=== PATIENT | female | born 1970 | race African-American/Black ===

== ENCOUNTER 2019-07-15 15:52 | Emergency (ER) | payer MEDICARE, SELFPAY ==
--- NOTE | ~2019-07-15 | XR_ITS ---
EXAMINATION: XR chest 2V DATE: 07/15/2019 21:29 INDICATION: Fever, cough and congestion TECHNIQUE: PA and lateral views of the chest were obtained. COMPARISON: Chest radiograph dated 12/09/2010 FINDINGS: The lungs remain clear with no focal airspace opacities, pulmonary edema, pleural effusion or pneumot horax. The cardiomediastinal silhouette is normal. Mild lumbar spondylosis. IMPRESSION: 1. No acute cardiopulmonary disease. Reviewed, dictated and finalized at location A. [employer]
[2019-07-15 16:57] VITALS: BP 141/95; PULSE 93; RESP 18; TEMP 36.7; O2SAT 100
[2019-07-15 19:06] VITALS: BP 152/98; PULSE 94; RESP 20; O2SAT 97
[2019-07-15 20:33] VITALS: BP 153/88; PULSE 100; RESP 22; TEMP 37.1; O2SAT 94
--- NOTE | 2019-07-15 21:04 | ED.GENADULT ---
HPI - General Adult General Chief complaint: Upper Respiratory Infection Stated complaint: cough and cold s/sx x1wk vag d/c Time Seen by Provider: 07/15/19 21:03 Source: patient and RN notes reviewed Mode of arrival: ambulatory Limitations: no limitations History of Present Illness HPI narrative: A 49 y/o female presents to the ED with dysuria beginning today. She states that she has had a real bad cold for the past 8 days, but today when she began to have burning pain when she urinated so she decided to come to the ED to be evaluated. She reports associated cough, sore throat, generalized body aches, mild vaginal discharge, chills, and a fever of 102 that broke today. She notes that she has done and take everything to try and alleviated her symptoms but denies anything working. She also denies any SOB or CP. Onset (ago): hour(s) Relieving factors: none Associated symptoms: cough, fever/chills (of 102 that has resolved yesterday) and other (sore throat, generalized body aches, mild vaginal discharge) Related Data Allergies Allergy/AdvReac Type Severity Reaction Status Date / Time latex Allergy Mild Unknown Verified 07/15/19 19:06 Review of Systems Constitutional: Constitutional: Reports body ache(s) (generalized), Reports chills and Reports fever(s) (of 102 that resolved yesterday) ENT: Reports sore throat Cardiovascular: Cardiovascular: Denies chest pain Respiratory: Respiratory: Reports cough and Denies dyspnea Genitourinary: Genitourinary: Reports dysuria and Reports vaginal discharge (mild) [facility] Past Medical History Medical History (Updated 07/15/19 @ 22:03 by Dinesh Parks MD) Bronchitis (Acute) Carpal tunnel syndrome (Acute) Ectopic (Acute) Hypertension (Acute) Surgical History Surgical History (Updated 07/15/19 @ 21:33 by Dale Muller) H/O prior ablation treatment (Acute) History of carpal tunnel surgery of left wrist (Acute) History of cholecystectomy (Acute) History of gastric bypass (Acute) History of hysterectomy (Acute) Hx of tubal ligation (Acute) Social History Social History (Updated 07/15/19 @ 21:34 by Dale Muller) Smoking status: Never smoker Gender identity (if verbalized by the patient): Female Comments PCP: Dr. Barnes. Course Vital Signs Vital signs: Vital Signs Temperature 36.7 C 07/15/19 16:57 Pulse Rate 93 07/15/19 16:57 Respiratory Rate 18 07/15/19 16:57 Blood Pressure 141/95 H 07/15/19 16:57 Pulse Oximetry 100 07/15/19 16:57 Temperature 36.7 C 07/15/19 16:57 Pulse Rate 94 07/15/19 19:06 Respiratory Rate 20 07/15/19 19:06 Blood Pressure 152/98 H 07/15/19 19:06 Pulse Oximetry 97 07/15/19 19:06 Medical Decision Making Vital Signs Vital Signs: Vital Signs Temperature 36.7 C 07/15/19 16:57 Pulse Rate 93 07/15/19 16:57 Respiratory Rate 18 07/15/19 16:57 Blood Pressure 141/95 H 07/15/19 16:57 Pulse Oximetry 100 07/15/19 16:57 Temperature 36.7 C 07/15/19 16:57 Pulse Rate 94 07/15/19 19:06 Respiratory Rate 20 07/15/19 19:06 Blood Pressure 152/98 H 07/15/19 19:06 Pulse Oximetry 97 07/15/19 19:06 Lab Data Labs: Influenza A Screen Negative Reference Range: Negative Influenza B Screen Negative Reference Range: Negative Discharge Plan Discharge Clinical Impression: Upper respiratory infection Instructions: Upper Respiratory Infection (ED) Prescriptions: New pseudoephedrine HCl 30 mg capsule (abuse-resistant) 60 mg PO Q4-6H PRN (Reason: nasal congestion) Qty: 60 RF: 0 benzonatate [Tessalon Perles] 100 mg capsule 200 mg PO TID PRN (Reason: cough) Qty: 30 RF: 0 Follow-up/Referrals: UNKNOWN,DOCTOR [Primary Care Provider] -
[2019-07-15] MEDS: PSEUDOEPHEDRINE HCL 30 MG TABLET 60 MG PO (21:36)
[2019-07-15] MEDS: IBUPROFEN 600 MG TABLET PO (21:36)
[2019-07-15 21:40] VITALS: BP 145/97; PULSE 97; RESP 20; TEMP 37.1; O2SAT 93
[2019-07-15] MEDS: BENZONATATE 100 MG CAPSULE 200 MG PO (22:01)
--- NOTE | 2019-07-15 22:15 | PC.NURSE ---
Patient provided urine sample. To send at this time.
--- NOTE | 2019-07-15 22:37 | PC.NURSE ---
RN in to clean room. asked pt if she was okay. Pt states I have been here for fucking seven hours. Go get my discharge papers and send me home. EDP notified.
[2019-07-15 22:52] LABS: Add Urine Microscopic? YES; Appearance Urine Clear (Clear); Bacteria Urine Trace /hpf; Bilirubin Urine Negative (Negative); Blood Urine Negative (Negative); Color Urine Yellow (Yellow); Glucose Urine UA Negative (Negative); Ketones Urine Trace mg/dL (Negative); Leukocyte Esterase Ur Trace LEU/UL (NEGATIVE); Mucus Urine Rare /lpf; Nitrate Urine Negative (Negative); Protein Urine Negative (Negative); Specific Grav Ur 1.024 (1.001-1.035); Squamous Epithelial Cell Urine Few /hpf (Few)
--- NOTE | 2019-07-15 23:18 | PC.NURSE ---
BARBARA Parks aware of patient's lab results.
== END 2019-07-15 22:50 | disposition home or self-care (01) ==
PROVIDERS: Emergency Provider Emergency Medicine; Visit Provider Emergency Medicine
DX: J06.9 Acute upper respiratory infection, unspecified (principal); I10 Essential (primary) hypertension; Z98.84 Bariatric surgery status; R50.9 Fever, unspecified
CPT/HCPCS: 71046; 81001; 87086; 87804; 99283; A9270

== ENCOUNTER 2019-10-08 08:14 | Outpatient (CLI) | payer MEDICARE, SELFPAY ==
[2019-10-08 09:02] LABS: Basophils Absolute Auto 0.1 K/mm3 (0.0-0.1); Basophils Percent Auto 0.9 % (0.2-1.2); Eosinophils Absolute Auto 0.2 K/mm3 (0-0.3); Eosinophils Percent Auto 2.6 % (0-4.4); Hematocrit 40.5 % (37.0-47.0); Hemoglobin 12.8 g/dL (12.0-15.0); Immature Granulocyte Absolute 0.03 K/mm3 (0.00-0.031); Immature Granulocyte Percent A 0.4 % (0-0.5); Lymphocytes Absolute Auto 2.07 K/mm3 (0.9-3.2); Mean Corpuscular HGB Conc 31.6 g/dl (32-36); Mean Corpuscular Hemoglobin 29.6 pg (26-34); Mean Corpuscular Volume 93.5 fl (80-100); Mean Platelet Volume 9.7 fl (7.4-10.4); Monocytes Absolute Auto 0.7 K/mm3 (0.1-0.6); Monocytes Percent Auto 8.5 % (2.6-8.5); Neutrophils Absolute Auto 4.9 K/mm3 (1.3-6.7); Neutrophils Percent Auto 61.6 % (45.5-73.1); Platelet Count Result 311 k/mm3 (150-375); Red Blood Count 4.33 M/mm3 (4.2-5.4); Red Cell Distribution Width 12.8 % (11.5-14.5)
[2019-10-08 09:15] LABS: Alanine Aminotransferase 14 U/L (4-35); Albumin Level 3.7 g/dL (3.5-5.1); Alkaline Phosphatase 98 U/L (38-126); Aspartate Amino Transferase 21 U/L (14-36); Bilirubin,Total 0.6 mg/dL (0.2-1.3); Blood Urea Nitrogen 17 mg/dL (7-17); Carbon Dioxide 28 mmol/L (22-30); Chloride 101 mmol/L (98-107); Estimated Glomerular Filt Rate > 60; Glucose 87 mg/dL (65-105); Magnesium 1.8 mg/dL (1.6-2.3); Sodium 137 mmol/L (137-145)
[2019-10-08 09:22] LABS: Prealbumin 19.5 mg/dL (17.6-36.0)
[2019-10-08 09:58] LABS: Iron 48 ug/dL (37-170)
[2019-10-08 10:04] LABS: Vitamin D 25 Hydroxy 26.6 ng/mL
[2019-10-08 10:32] LABS: Folic Acid 8.9 ng/mL (2.76->20); Vitamin B12 > 1000.0 pg/mL (239-931)
[2019-10-08 12:13] LABS: Parathyroid Intact 86.7 pg/mL (7.5-53.5)
[2019-10-10 07:08] LABS: Zinc 62 mcg/dL (60-130)
[2019-10-11 11:03] LABS: Vitamin B1 12 nmol/L (8-30)
== END 2019-10-08 08:15 | disposition home or self-care (01) ==
PROVIDERS: PCP Internal Medicine
DX: E55.9 Vitamin D deficiency, unspecified (principal); K91.2 Postsurgical malabsorption, not elsewhere classified; Z98.84 Bariatric surgery status
CPT/HCPCS: 36415; 80053; 82306; 82607; 82728; 82746; 83540; 83735; 83970; 84134; 84425; 84630; 85025

== ENCOUNTER 2021-01-06 14:11 | Emergency (ER) | payer MEDICARE, SELFPAY ==
[2021-01-06] VITALS (10 sets, daily range): BP systolic 160–170; BP diastolic 89–102; PULSE 75–88; RESP 12–20; TEMP 36.4; O2SAT 98–100
[2021-01-06 14:31] LABS: Basophils Absolute Auto 0.1 K/mm3 (0.0-0.1); Basophils Percent Auto 0.8 % (0.2-1.2); Eosinophils Absolute Auto 0.3 K/mm3 (0-0.3); Eosinophils Percent Auto 3.2 % (0-4.4); Hematocrit 39.1 % (37.0-47.0); Hemoglobin 12.6 g/dL (12.0-15.0); Immature Granulocyte Absolute 0.04 K/mm3 (0.00-0.031); Immature Granulocyte Percent A 0.4 % (0-0.5); Lymphocytes Percent Auto 21.6 % (18.3-44.2); Mean Corpuscular HGB Conc 32.2 g/dl (32-36); Mean Corpuscular Hemoglobin 29.6 pg (26-34); Mean Platelet Volume 9.5 fl (7.4-10.4); Monocytes Absolute Auto 0.9 K/mm3 (0.1-0.6); Monocytes Percent Auto 9.5 % (2.6-8.5); Neutrophils Percent Auto 64.5 % (45.5-73.1); Platelet Count Result 338 k/mm3 (150-375); Red Blood Count 4.25 M/mm3 (4.2-5.4); White Blood Count 9.3 K/mm3 (4.5-10.0)
[2021-01-06 14:46] LABS: Alanine Aminotransferase 14 U/L (4-35); Albumin Level 3.9 g/dL (3.5-5.1); Anion Gap 4 mmol/L (8-16); Aspartate Amino Transferase 23 U/L (14-36); Bilirubin,Total 0.6 mg/dL (0.2-1.3); Blood Urea Nitrogen 12 mg/dL (7-17); Calcium 8.7 mg/dL (8.4-10.2); Carbon Dioxide 26 mmol/L (22-30); Chloride 107 mmol/L (98-107); Estimated Glomerular Filt Rate > 60; Glucose 94 mg/dL (65-105); Potassium 4.4 mmol/L (3.4-5.0); Sodium 137 mmol/L (137-145)
[2021-01-06 14:47] LABS: Alkaline Phosphatase 101 U/L (38-126); Lipase 88 U/L (23-300)
[2021-01-06 14:52] LABS: Add Urine Microscopic? YES; Amorphous Sediment Urine Few; Appearance Urine Clear (Clear); Bilirubin Urine Negative (Negative); Blood Urine Negative (Negative); Color Urine Yellow (Yellow); Glucose Urine UA Negative (Negative); Ketones Urine Negative (Negative); Leukocyte Esterase Ur Negative LEU/UL (Negative); Mucus Urine Few /lpf; Nitrate Urine Negative (Negative); Protein Urine 2+ mg/dL (Negative); RBC Urine 0-2 /hpf (0-2); Specific Grav Ur 1.027 (1.001-1.035); Squamous Epithelial Cell Urine Few /hpf (Few); Urobilinogen Urine Negative mg/dL (<2.0); WBC Urine 0-3 /hpf
[2021-01-06] MEDS: KETOROLAC (*BKC) 60 MG/2 ML VIAL IM (15:55)
--- NOTE | 2021-01-06 16:09 | ED.BACK ---
HPI - Back Pain/Injury General Chief Complaint: Back Pain/Injury Stated Complaint: back and right flank pain Time Seen by Provider: 01/06/21 15:10 Source: patient Mode of arrival: ambulatory Limitations: no limitations History of Present Illness HPI Narrative: 50-year-old female Gastric bypass Complains of onset of sharp right low back pain this morning after moving awkwardly Pain is exacerbated by some movements and positions and by deep breaths, and relieved by remaining still She does not have a fever, she does not have any symptoms such as dysuria frequency or hematuria, and she has no nausea vomiting diarrhea or constipation There is no history of an injury No numbness or weakness or radicular pains Related Data Home Medications Medication Instructions Recorded Confirmed lisinopril 09/30/19 Allergies Allergy/AdvReac Type Severity Reaction Status Date / Time latex Allergy Mild Unknown Verified 09/30/19 11:22 Review of Systems Review of Systems: All systems reviewed & are unremarkable except as noted in HPI and below Constitutional: Constitutional: Reports no additional constitutional complaints, Denies chills, Denies fever(s) and Denies headache(s) Eyes: Eyes: Reports no additional eye complaints and Denies change in vision ENT: Denies headache(s) and Denies sore throat Cardiovascular: Cardiovascular: Denies dyspnea Gastrointestinal: Gastrointestinal: Denies abdominal pain, Denies diarrhea and Denies vomiting Genitourinary: Genitourinary: Denies hematuria, Denies urinary frequency, Denies nocturia, Denies dysuria and Denies flank pain Musculoskeletal: Musculoskeletal: Reports back pain, Denies deformity, Denies arthralgias, Denies joint swelling and Denies numbness Integumentary/Breasts: Skin/Breast: Denies rash and Denies wounds Neurologic: Denies headache(s), Denies focal weakness and Denies numbness Endocrine: Endocrine: Reports no additional endocrine complaints Hematologic/Lymphatic: Hematologic/Lymphatic: Reports no additional hematologic/lymphatic complaints Allergic/Immunologic: Allergic/Immunologic: Reports no additional allergic/immunologic complaints [facility] Past Medical History Medical History (Updated 01/06/21 @ 16:56 by Alexi Zepeda MD) Bronchitis Carpal tunnel syndrome Ectopic Hypertension Surgical History Surgical History H/O prior ablation treatment History of carpal tunnel surgery of left wrist History of cholecystectomy History of gastric bypass History of hysterectomy Hx of tubal ligation Social History Social History Smoking status: Never smoker Gender identity (if verbalized by the patient): Female Exam Const: General: cooperative, no acute distress and alert Nutritional Appearance: obese Orientation/consciousness: patient oriented x3 (alert) HENMT: Head: normal to inspection, normocephalic and atraumatic Ears: external ears normal General nose exam: no epistaxis Eyes: Conjunctivae: conjunctivae normal EOM: EOMs intact bilaterally Neck: Neck: normal visual inspection, supple and no JVD Resp: Effort & Inspection: normal respiratory effort and not labored Auscultation: other (BS =) : General: Yes no CVA tenderness Back/Spine/Pelvis: Other: There is a small area of well localized right lumbar paraspinous tenderness Skin: General skin exam: normal color and no rashes or lesions noted Neuro: General: patient oriented x3 (alert) and moves all extremities Speech: normal speech Other: Negative straight leg raise Extrem: General: normal to inspection and no pedal edema Psych: Affect: normal affect Course Course Emergency Course: Better after Toradol, but cannot be prescribed due to the gastric bypass Vital Signs Vital signs: Vital Signs Temperature 36.4 C L 01/06/21 14:14 Pulse Rate 87 01/06/21 14:14 Respiratory Rate 18
== END 2021-01-06 17:04 | disposition home or self-care (01) ==
PROVIDERS: General Practice; Emergency Provider Emergency Medicine; PCP Internal Medicine
DX: S39.012A Strain of muscle, fascia and tendon of lower back, initial encounter (principal); Z98.84 Bariatric surgery status; I10 Essential (primary) hypertension; X50.1XXA Overexertion from prolonged static or awkward postures, initial encounter
CPT/HCPCS: 36415; 80053; 81001; 83690; 85025; 99283; J1885

== ENCOUNTER 2021-01-07 05:51 | Emergency (ER) | payer MEDICARE, SELFPAY ==
--- NOTE | ~2021-01-07 | XR_ITS ---
EXAMINATION: XR abdomen/kub 1V DATE: 01/07/2021 07:54 INDICATION: Right flank pain. TECHNIQUE: A supine view of the abdomen on 2 radiographs was obtained. COMPARISON: CT abdomen and pelvis 01/07/2021 FINDINGS: There are no dilated loops of bowel. There is a small volume of stool in the colon. There a re surgical changes in the stomach. IMPRESSION: 1. Normal bowel gas pattern. Reviewed, dictated and finalized at location A.
--- NOTE | ~2021-01-07 | US_ITS ---
EXAMINATION: US pelvic complete w TV EXAM DATE: 01/07/2021 09:05 INDICATION: Right lower quadrant pain, adnexal tenderness. Salpingectomy 1994, ablation 2005, partial hysterectomy 2015. TECHNIQUE: Pelvic transabdominal and transvaginal sonogram was performed. There are multiple graysca le and Doppler images available for interpretation. Comparison is made to prior examination from 06/06. FINDINGS: Uterus not identified consistent with history provided. The vaginal cuff is unremarkable. T here is trace free pelvic fluid. Right adnexa: The ovary is not identified. There is no adnexal mass. Left adnexa: The ovary measures 3.0 x 1.9 x 2.7 cm, with complex cystic lesion containing proteinaceo us fluid probably hemorrhagic cyst measuring 1.8 x 1.2 x 1.4 cm. Ovarian vascular flow confirmed. IMPRESSION: Small complex cystic left ovarian lesion most likely hemorrhagic cyst. Reviewed, dictated and finalized at location A. IMPRESSION: Small complex cystic left ovarian lesion most likely hemorrhagic cy st.
--- NOTE | ~2021-01-07 | CT_ITS ---
EXAMINATION: CT abdomen pelvis wo con DATE: 01/07/2021 07:43 INDICATION: Right flank pain. TECHNIQUE: Computed tomography (CT) of the abdomen and pelvis was performed without intravenous contr ast. Automated exposure control and iterative reconstruction technique were employed. The dose-length product was 948.35 mGy-cm. COMPARISON: CT abdomen and pelvis 06/05/2010 FINDINGS: The visualized portions of the lung bases are clear without pneumonia or pleural effusion. The heart size is normal. No pericardial effusion. The liver, spleen, pancreas, adrenal glands, and k idneys are normal. There is no urolithiasis. There are surgical changes of the stomach. There are no dilated loops of bowel. The appendix is normal. There are no pathologically enlarged lymph nodes. The re is trace pelvic ascites. There is mild thoracolumbar spondylosis. IMPRESSION: 1. No etiology for the patient's symptoms. Reviewed, dictated and finalized at location A.
[2021-01-07 05:56] VITALS: BP 177/109; PULSE 90; RESP 18; O2SAT 100
[2021-01-07 06:38] LABS: Basophils Absolute Auto 0.1 K/mm3 (0.0-0.1); Basophils Percent Auto 0.9 % (0.2-1.2); Eosinophils Absolute Auto 0.3 K/mm3 (0-0.3); Eosinophils Percent Auto 3.8 % (0-4.4); Hematocrit 40.9 % (37.0-47.0); Hemoglobin 12.9 g/dL (12.0-15.0); Immature Granulocyte Absolute 0.02 K/mm3 (0.00-0.031); Immature Granulocyte Percent A 0.3 % (0-0.5); Lymphocytes Absolute Auto 1.53 K/mm3 (0.9-3.2); Lymphocytes Percent Auto 19.4 % (18.3-44.2); Mean Corpuscular HGB Conc 31.5 g/dl (32-36); Mean Corpuscular Hemoglobin 29.4 pg (26-34); Mean Corpuscular Volume 93.2 fl (80-100); Mean Platelet Volume 9.3 fl (7.4-10.4); Monocytes Absolute Auto 0.7 K/mm3 (0.1-0.6); Neutrophils Absolute Auto 5.3 K/mm3 (1.3-6.7); Neutrophils Percent Auto 66.6 % (45.5-73.1); Platelet Count Result 322 k/mm3 (150-375); Red Blood Count 4.39 M/mm3 (4.2-5.4); Red Cell Distribution Width 12.9 % (11.5-14.5); White Blood Count 7.9 K/mm3 (4.5-10.0)
[2021-01-07 06:47] LABS: Alanine Aminotransferase 13 U/L (4-35); Albumin Level 3.8 g/dL (3.5-5.1); Alkaline Phosphatase 94 U/L (38-126); Anion Gap 3 mmol/L (8-16); Aspartate Amino Transferase 25 U/L (14-36); Bilirubin,Total 0.8 mg/dL (0.2-1.3); Blood Urea Nitrogen 13 mg/dL (7-17); Calcium 8.6 mg/dL (8.4-10.2); Carbon Dioxide 29 mmol/L (22-30); Chloride 108 mmol/L (98-107); Estimated Glomerular Filt Rate > 60; Glucose 82 mg/dL (65-105); Potassium 4.5 mmol/L (3.4-5.0); Sodium 140 mmol/L (137-145)
[2021-01-07 07:05] LABS: Add Urine Microscopic? YES; Amorphous Sediment Urine Few; Appearance Urine Cloudy (Clear); Bilirubin Urine 1+ (Negative); Blood Urine Negative (Negative); Color Urine Amber (Yellow); Glucose Urine UA Negative (Negative); Ketones Urine Negative (Negative); Leukocyte Esterase Ur Negative LEU/UL (Negative); Mucus Urine Heavy /lpf; Nitrate Urine Negative (Negative); Protein Urine 2+ mg/dL (Negative); Squamous Epithelial Cell Urine Many /hpf (Few)
[2021-01-07 07:06] LABS: Specific Grav Ur 1.031 (1.001-1.035)
--- NOTE | 2021-01-07 07:16 | PC.NURSE ---
Urine sent to lab by previous shift, pt aware more urine is needed for culture specimen. Pt reporting R flank pain radiating to groin like labor pains , denies hx kidney stone. Pt placed in position of comfort, call light within reach
[2021-01-07] MEDS: LACTATED RINGERS 1,000 ML 999 ML IV CONT (07:30)
[2021-01-07] MEDS: ONDANSETRON INJ 4 MG/2 ML VIAL IV PUSH (07:30)
[2021-01-07] MEDS: HYDROmorphone HCL INJ (*CRX) 1 MG/ML SYR IV PUSH (07:30)
--- NOTE | 2021-01-07 07:42 | ED.BACK ---
HPI - Back Pain/Injury General Chief Complaint: Urogenital-Female Stated Complaint: Right flank pain-vomiting Time Seen by Provider: 01/07/21 07:00 Source: patient Mode of arrival: ambulatory Limitations: no limitations History of Present Illness HPI Narrative: This is a 50 year old female who presents for evaluation of right lower back pain. She states this pain has been present since Monday. Her pain has been intermittent. She was evaluated in ER yesterday and she was discharged home with muscle relaxers. She has not gotten the prescription filled. She states she was awaken this morning with severe right lower back pain that radiates to her right groin. Today her pain was associated with nausea and vomiting today. She has not taken anything for pain. She is unsure of fever but she reports she feels hot. She denies history of kidney stone, dysuria or hematuria. On Monday, she did not notice abnormal milky vaginal discharge. Related Data Home Medications Medication Instructions Recorded Confirmed lisinopril 09/30/19 Allergies Allergy/AdvReac Type Severity Reaction Status Date / Time latex Allergy Mild Unknown Verified 01/07/21 05:53 Review of Systems Review of Systems: All systems reviewed & are unremarkable except as noted in HPI and below PMFSH Past Medical History Medical History (Updated 01/07/21 @ 10:36 by Araseli Medrano MD) Bronchitis Carpal tunnel syndrome Ectopic Hypertension Surgical History Surgical History H/O prior ablation treatment History of carpal tunnel surgery of left wrist History of cholecystectomy History of gastric bypass History of hysterectomy Hx of tubal ligation Social History Social History Smoking status: Never smoker Gender identity (if verbalized by the patient): Female Exam Const: General: no acute distress and alert Orientation/consciousness: patient oriented x3 Eyes: EOM: EOMs intact bilaterally Resp: Effort & Inspection: normal respiratory effort and no retractions Auscultation: clear to auscultation bilaterally Cardio: Rate: regular rate Rhythm: regular rhythm Heart sounds: no murmurs GI: GI Palp: Yes Soft to palpation, Yes Tenderness to palpation present (GI) (RUQ, RLQ), No Guarding due to palpation present (GI) and No Rigid due to palpation : General: Yes CVA tenderness on the right Speculum Exam - Cervix: normal appearance of the cervix and Cervical os closed Other: no CMT, white milkly discharge Skin: General skin exam: normal color Rashes: no rashes Neuro: General: patient oriented x3, moves all extremities and CN's II-XI intact bilaterally Extrem: General: normal to inspection Psych: Mental Status: mental status grossly normal Affect: normal affect Course Reevaluation(s) Reevaluation #1: I discussed with patient labs and imaging. There were unable to visualized right ovary but she was found to have left ovarian cyst. She will follow up with her foreign policy officer Dr. Faith. She has been her for similar pain in this past. This may be musculoskeletal as well. She will take muscle relaxer. She states she feels much better. Date: 01/07/21 Time: 10:27 Vital Signs Vital signs: Vital Signs Pulse Rate 90 01/07/21 05:56 Respiratory Rate 18 01/07/21 05:56 Blood Pressure 177/109 H 01/07/21 05:56 Pulse Oximetry 100 01/07/21 05:56 Temperature 98.2 F 01/07/21 07:50 Pulse Rate 77 01/07/21 10:32 Respiratory Rate 20 01/07/21 10:32 Blood Pressure 159/89 H 01/07/21 10:32 Pulse Oximetry 100 01/07/21 10:32 MDM - Back Pain/Injury Medical Records Attestation: I reviewed the patient's medical records. Lab Data Attestation: I reviewed the patient's lab results. Result diagrams: 01/07/21 06:27 01/07/21 06:26 Labs: Lab Results 01/07/21 01/07/21 01/07/21 R
[2021-01-07 07:50] VITALS: BP 158/101; PULSE 73; RESP 18; TEMP 36.8; O2SAT 100
--- NOTE | 2021-01-07 10:07 | PC.NURSE ---
ED MD at bedside for reassessment, update pt on dispo and POC. Pt completed IV fluid bolus, no active vomiting, resting comfortably on cart
[2021-01-07 10:32] VITALS: BP 159/89; PULSE 77; RESP 20; O2SAT 100
== END 2021-01-07 10:50 | disposition home or self-care (01) ==
PROVIDERS: Emergency Medicine; Emergency Provider General Practice; PCP Internal Medicine
DX: R10.9 Unspecified abdominal pain (principal); N83.202 Unspecified ovarian cyst, left side; I10 Essential (primary) hypertension; Z98.84 Bariatric surgery status
CPT/HCPCS: 36415; 74018; 74176; 76830; 76856; 80053; 81001; 85025; 87070; 87086; 87491; 87591; 87808; 96361; 96374; 96375; 99284; J1170; J2405; J7120

== ENCOUNTER 2021-06-30 08:16 | Outpatient (CLI) | payer MEDICARE, SELFPAY ==
[2021-06-30 09:01] LABS: Basophils Absolute Auto 0.1 K/mm3 (0.0-0.1); Basophils Percent Auto 0.9 % (0.2-1.2); Eosinophils Absolute Auto 0.3 K/mm3 (0-0.3); Hemoglobin 12.8 g/dL (12.0-15.0); Immature Granulocyte Absolute 0.03 K/mm3 (0.00-0.031); Immature Granulocyte Percent A 0.4 % (0-0.5); Lymphocytes Absolute Auto 1.77 K/mm3 (0.9-3.2); Lymphocytes Percent Auto 23.7 % (18.3-44.2); Mean Corpuscular Hemoglobin 30.3 pg (26-34); Mean Corpuscular Volume 94.6 fl (80-100); Mean Platelet Volume 9.6 fl (7.4-10.4); Monocytes Absolute Auto 0.6 K/mm3 (0.1-0.6); Monocytes Percent Auto 8.6 % (2.6-8.5); Neutrophils Absolute Auto 4.7 K/mm3 (1.3-6.7); Neutrophils Percent Auto 62.4 % (45.5-73.1); Platelet Count Result 306 k/mm3 (150-375); Red Blood Count 4.23 M/mm3 (4.2-5.4); Red Cell Distribution Width 12.5 % (11.5-14.5); White Blood Count 7.5 K/mm3 (4.5-10.0)
[2021-06-30 09:15] LABS: Alanine Aminotransferase 15 U/L (4-35); Albumin Level 3.7 g/dL (3.5-5.1); Alkaline Phosphatase 96 U/L (38-126); Anion Gap 6 mmol/L (8-16); Aspartate Amino Transferase 22 U/L (14-36); Bilirubin,Total 0.9 mg/dL (0.2-1.3); Blood Urea Nitrogen 13 mg/dL (7-17); Calcium 8.9 mg/dL (8.4-10.2); Carbon Dioxide 30 mmol/L (22-30); Chloride 104 mmol/L (98-107); Cholesterol 166 mg/dL (0-200); Estimated Glomerular Filt Rate > 60; Glucose 89 mg/dL (65-110); HDL Direct 77 mg/dL; Magnesium 1.6 mg/dL (1.6-2.3); Sodium 140 mmol/L (137-145); Triglycerides 63 mg/dL (<150)
[2021-06-30 09:25] LABS: Hemoglobin A1C 5.4 % (<5.7)
[2021-06-30 09:26] LABS: LDL Cholesterol Direct 67 mg/dL
[2021-06-30 10:18] LABS: Folic Acid 6.8 ng/mL (2.76->20)
== END 2021-06-30 08:17 | disposition home or self-care (01) ==
PROVIDERS: PCP Internal Medicine
DX: K91.2 Postsurgical malabsorption, not elsewhere classified (principal); Z13.21 Encounter for screening for nutritional disorder; Z98.84 Bariatric surgery status
CPT/HCPCS: 36415; 80053; 80061; 82607; 82746; 83036; 83735; 85025

== ENCOUNTER 2021-12-04 10:21 | Emergency (ER) | payer MEDICARE, SELFPAY ==
--- NOTE | ~2021-12-04 | CT_ITS ---
EXAMINATION: CT abdomen pelvis wo con DATE: 12/04/2021 12:08 INDICATION: Flank pain, urinary pain and hematuria TECHNIQUE: Computed tomography (CT) of the abdomen and pelvis was performed without intravenous contr ast. Automated exposure control and iterative reconstruction technique were employed. The dose-length product was 1367.06 mGy-cm. COMPARISON: 10/09/2020 FINDINGS: Lung bases are clear. Heart size is normal. No pericardial or pleural effusion. Postoperative change of prior Rabia-en-Y gastric bypass procedure. Status post cholecystectomy. Liver, spleen, pancreas, bi lateral adrenal glands and kidneys are normal. No urolithiasis or hydronephrosis. Bladder is normal. The uterus is not identified and has likely been surgically resected. Normal appendix. No bowel obstr uction or abnormal wall thickening. No free intraperitoneal gas or fluid. No pathologically enlarged abdominal or pelvic lymphadenopathy. Mild thoracolumbar spondylosis. IMPRESSION: 1. No urolithiasis or acute intra-abdominal/pelvic process. Reviewed, dictated and finalized at location A.
[2021-12-04 10:38] VITALS: BP 161/90; PULSE 100; RESP 18; TEMP 36.6; O2SAT 100
[2021-12-04 10:50] LABS: Add Urine Microscopic? YES; Appearance Urine Clear (Clear); Bilirubin Urine Negative (Negative); Blood Urine 1+ (Negative); Color Urine Yellow (Yellow); Glucose Urine UA Negative (Negative); Ketones Urine Negative (Negative); Leukocyte Esterase Ur Negative LEU/UL (Negative); Mucus Urine Rare /lpf; Nitrate Urine Negative (Negative); Protein Urine Negative (Negative); Specific Grav Ur 1.023 (1.001-1.035); Squamous Epithelial Cell Urine Occasional /hpf (Few); WBC Urine 0-3 /hpf
[2021-12-04 11:02] LABS: Basophils Absolute Auto 0.1 K/mm3 (0.0-0.1); Basophils Percent Auto 1.2 % (0.2-1.2); Eosinophils Absolute Auto 0.3 K/mm3 (0-0.3); Eosinophils Percent Auto 4.2 % (0-4.4); Hematocrit 39.6 % (37.0-47.0); Hemoglobin 12.6 g/dL (12.0-15.0); Immature Granulocyte Absolute 0.03 K/mm3 (0.00-0.031); Immature Granulocyte Percent A 0.4 % (0-0.5); Lymphocytes Absolute Auto 1.47 K/mm3 (0.9-3.2); Lymphocytes Percent Auto 19.8 % (18.3-44.2); Mean Corpuscular HGB Conc 31.8 g/dl (32-36); Mean Corpuscular Hemoglobin 29.6 pg (26-34); Mean Platelet Volume 9.3 fl (7.4-10.4); Monocytes Absolute Auto 0.8 K/mm3 (0.1-0.6); Monocytes Percent Auto 11.2 % (2.6-8.5); Neutrophils Absolute Auto 4.7 K/mm3 (1.3-6.7); Neutrophils Percent Auto 63.2 % (45.5-73.1); Platelet Count Result 340 k/mm3 (150-375); Red Blood Count 4.26 M/mm3 (4.2-5.4); Red Cell Distribution Width 13.2 % (11.5-14.5); White Blood Count 7.4 K/mm3 (4.5-10.0)
[2021-12-04 11:13] LABS: Alanine Aminotransferase 12 U/L (4-35); Albumin Level 3.9 g/dL (3.5-5.1); Alkaline Phosphatase 111 U/L (38-126); Anion Gap 5 mmol/L (8-16); Aspartate Amino Transferase 24 U/L (14-36); Bilirubin,Total 0.9 mg/dL (0.2-1.3); Blood Urea Nitrogen 14 mg/dL (7-17); Calcium 8.4 mg/dL (8.4-10.2); Carbon Dioxide 26 mmol/L (22-30); Chloride 106 mmol/L (98-107); Estimated Glomerular Filt Rate > 60; Glucose 91 mg/dL (65-110); Sodium 137 mmol/L (137-145)
--- NOTE | 2021-12-04 11:35 | ED.FEMALEGU ---
HPI - Female Genitourinary General Chief complaint: Urogenital-Female Stated complaint: urogenital female Time Seen by Provider: 12/04/21 10:30 Source: patient Limitations: no limitations History of Present Illness HPI Narrative: 51-year-old female presents to the emergency department for evaluation of a rash from her new soap and also complained of painful urination and associated low back pain. Patient states that she started using a new soap a few days ago and immediately afterwards did have some itching on her lower abdomen and thighs. Patient states that she did stop using the new soap. Patient states that she did place some Vaseline around the areas that were itching and help significantly. Patient also does complain of painful urination and associated low back pain. Patient denies any prior history of kidney stones. Related Data Home Medications Medication Instructions Recorded Confirmed cyclobenzaprine 10 mg PO DAILY PRN 12/04/21 12/04/21 losartan 50 mg PO DAILY 12/04/21 12/04/21 Allergies Allergy/AdvReac Type Severity Reaction Status Date / Time latex Allergy Mild Unknown Verified 01/07/21 05:53 Review of Systems Review of Systems: CONSTITUTIONAL: Denies fever, chills, or sweats. EYES: Denies visual changes, redness, or discharge. ENT: Denies rhinorrhea, congestion, sore throat, or otalgia. CARDIOVASCULAR: Denies chest pain, palpitations, or edema. RESPIRATORY: Denies cough or dyspnea. GASTROINTESTINAL: Denies abdominal pain, nausea, vomiting, or diarrhea. GENITOURINARY: Dysuria SKIN: Itchy rash to pannus and thighs MUSCULOSKELETAL: Reports low back pain NEUROLOGIC: Denies headache, numbness, or weakness. All systems reviewed & are unremarkable except as noted in HPI and below [facility] [place] Past Medical History Medical History (Updated 12/04/21 @ 17:29 by Beny Haines MD) Bronchitis Carpal tunnel syndrome Ectopic Hypertension Surgical History Surgical History H/O prior ablation treatment History of carpal tunnel surgery of left wrist History of cholecystectomy History of gastric bypass History of hysterectomy Hx of tubal ligation Social History Social History Smoking status: Never smoker Gender identity (if verbalized by the patient): Female Exam Narrative: APPEARANCE: Well appearing, no pain, no distress, well-nourished. HEAD: normocephalic, atraumatic. EYES: PERRLA/EOMI, conjunctivae clear. NOSE: Normal no drainage NECK: Supple. No adenopathy, no masses. RESPIRATORY: Airway patent, respirations nonlabored. Clear to auscultation bilaterally, no rales, rhonchi, wheezing. CARDIOVASCULAR: Regular rate and rhythm without murmurs rubs or gallops. ABDOMINAL: Soft, nontender, nondistended, normal bowel sounds MUSCULOSKELETAL: Moves all extremities. Strength/ROM intact, No edema, No calf tenderness. NEURO: Alert. Cranial nerves II through XII intact. Grossly normal exam SKIN: Resolving excoriated rash to pannus and medial thighs Course Course Emergency Course: Hematuria with no evidence of urinary tract infection. Patient did have hematuria. CT scan was ordered to rule out urolithiasis due to her also having some back pain. CT was negative for acute intra-abdominal pathology. Patient is allergic rash is improved and is responding to her Vaseline treatment. Patient states that she has already thrown out the offending soap. Patient was updated on the results of her work-up and reasons to return to the emergency department and the importance having close follow-up. Vital Signs Vital signs: Vital Signs Temperature 97.8 F 12/04/21 10:38 Pulse Rate 100 12/04/21 10:38 Respiratory Rate 18 12/04/21 10:38 Blood Pressure 161/90 H 12/04/21 10:38 Pulse Oximetry 100 12/04/21 10:38 Temperature 97.8 F 12/04/21 10:38 Pulse Rate 84 12/04/21 13:13 Respiratory Rate 12/04
[2021-12-04 13:13] VITALS: BP 155/76; PULSE 84; RESP 18; O2SAT 100
== END 2021-12-04 13:18 | disposition home or self-care (01) ==
PROVIDERS: Emergency Provider Emergency Medicine; PCP Internal Medicine
DX: T78.49XA Other allergy, initial encounter (principal); R31.9 Hematuria, unspecified; I10 Essential (primary) hypertension; Z98.84 Bariatric surgery status
CPT/HCPCS: 36415; 74176; 80053; 81001; 85025; 87086; 99284

== ENCOUNTER 2022-06-09 10:14 | Outpatient (CLI) | payer MEDICARE, SELFPAY ==
--- NOTE | ~2022-06-09 | XR_ITS ---
EXAMINATION: XR knee RT min 4V DATE: 06/09/2022 10:43 INDICATION: Right knee pain TECHNIQUE: Four views of the right knee were obtained. COMPARISON: None. FINDINGS: Alignment is normal. No fracture or osteochondral lesion. There is mild tricompartmental os teoarthritis characterized by tiny marginal osteophytes. There is a moderate-sized knee joint effusio n. Soft tissues are unremarkable. IMPRESSION: 1. Tricompartmental osteoarthritis and moderate sized joint effusion without acute osseous abnormalit y. Reviewed, dictated and finalized at location A. IMPRESSION: 1. Tricompartmental osteoarthritis and moderate sized joint effusion without ac joseph osseous abnormality.
== END 2022-06-09 10:15 | disposition home or self-care (01) ==
PROVIDERS: PCP Internal Medicine; Visit Provider Internal Medicine
DX: M17.11 Unilateral primary osteoarthritis, right knee (principal)
CPT/HCPCS: 73564

== ENCOUNTER 2023-03-29 21:52 | Emergency (ER) | payer MEDICARE, SELFPAY ==
--- NOTE | ~2023-03-29 | CT_ITS ---
CT Facial Bones Clinical Indication: Injury Technique: Contiguous axial scans were obtained through the facial bones followed by coronal and sagi ttal reconstructions. Dose reduction technique was used on this scan by utilizing automated exposure control and iterative reconstruction technique. The dose-length product (DLP) was 264.93 mGy-cm. Findings: No fractures are identified. The visualized paranasal sinuses are clear. Intraorbital soft tissues appear normal. Impression: No fracture identified. Reviewed, dictated and finalized at location . Impression: No fracture identified.
--- NOTE | ~2023-03-29 | CT_ITS ---
Non-contrast Head CT History: Head injury Technique: Axial non-contrast imaging of the brain was performed. Dose reduction technique was used on this scan by utilizing automated exposure control and iterative reconstruction technique. The dose -length product (DLP) was 605.33 mGy-cm. Findings: There is no evidence of intracranial hemorrhage, mass lesion, or acute infarct. Brain par enchyma appears normal. The ventricles and subarachnoid spaces are normal in size. The calvarium ap pears normal. The visualized paranasal sinuses and mastoid air cells are clear. Impression: No significant abnormality seen. Reviewed, dictated and finalized at location . Impression: No significant abnormality seen.
[2023-03-29 21:54] VITALS: PULSE 89; RESP 20; TEMP 36.9; O2SAT 100
--- NOTE | 2023-03-29 23:31 | ED.HEATRA ---
HPI - Head Injury General Chief complaint: Head Injury Stated complaint: swelling to left eye Time Seen by Provider: 03/29/23 23:16 History of Present Illness HPI Narrative: 60-year-old female with a history of gastric bypass reports for evaluation for head injury that occurred yesterday. Patient states she was trying to move a large trash can, slipped and fell hitting her head onto the corner of the trash can, then fell to the ground landing on her knees. She reports swelling to the frontal scalp with pain and ecchymosis and pain to her inferior orbits. She denies LOC, pain with EOMs, vision changes, focal numbness or weakness, neck pain, back pain, other injuries acquired in the fall. Related Data Home Medications Medication Instructions Recorded Confirmed cyclobenzaprine 10 mg tablet 10 mg PO DAILY PRN Spasms 12/04/21 11/28/22 lisinopril 20 mg tablet 20 mg PO DAILY 07/12/22 11/28/22 Allergies Allergy/AdvReac Type Severity Reaction Status Date / Time latex Allergy Intermediate Itching Verified 03/29/23 21:54 Review of Systems Review of Systems: CONSTITUTIONAL: Denies fever, chills EYES: Denies visual changes, redness, or discharge. ENT: See HPI CARDIOVASCULAR: Denies chest pain, palpitations, or edema. RESPIRATORY: Denies cough or dyspnea. GASTROINTESTINAL: Denies abdominal pain, nausea, vomiting, or diarrhea. GENITOURINARY: Denies dysuria or hematuria. SKIN: Denies rash or itching. MUSCULOSKELETAL: See HPI NEUROLOGIC: Denies headache, numbness, dizziness, or weakness. PSYCHIATRIC: Denies anxiety or depression. [facility] Past Medical History Medical History Bronchitis Carpal tunnel syndrome Dysphagia Ectopic Hypertension Obesity Screening for colon cancer Screening mammogram, encounter for Surgical History Surgical History History of carpal tunnel surgery of left wrist History of cholecystectomy History of dilation and curettage (08/13/15) hscope d&c--benign History of endometrial ablation (10/05/06) History of gastric bypass (~06/25/11) History of robot-assisted laparoscopic hysterectomy (01/14/16) RA TLH, (R) salpingectomy--menometrorrhagia, dysmenorrhea, failed ablation--benign Hx of tubal ligation (03/10/00) Family History Family History Mother Diabetes mellitus Hypertension Heart disease Father Hypertension Heart disease Social History Social History Smoking status: Never smoker Alcohol intake: current Drinks per week: 7 Substance use: never Substance use type: does not use Living arrangements: other Additional living arrangements comments: Occupation/Education: unemployed Gender identity (if verbalized by the patient): Female Sexual Orientation (if Verbalized by the Patient): Straight or Heterosexual Exam Narrative: GENERAL: Well-appearing, in no acute distress. Patient resting comfortably examined. She is pleasant and conversational HEAD: Edema and tenderness to the left anterior forehead without overlying ecchymosis, laceration or abrasion. EYES: PERRLA, EOMI. mild amount of ecchymosis to the left inferior orbit. Moderate amount of ecchymosis to the right inferior orbit. Tenderness with palpation to bilateral inferior orbits. No pain with EOMs. ENT: Nares clear. Mucous membranes moist. Oropharynx without tonsillar hypertrophy exudate or other lesions. NECK: Supple. No midline cervical spinous tenderness, step-offs or deformities CHEST: No respiratory distress. Clear to auscultation, no adventitious breath sounds. HEART: Regular rate and rhythm. No murmur heard. Normal peripheral pulses. EXTREMITIES: Normal range of motion. No edema. No tenderness to bilateral upper or lower extremities. SKIN: Warm, dry, no ra
[2023-03-30] MEDS: HYDROcodone/acetaminophen (*CRX) 5-325 MG TABLET 1 TAB PO (00:10)
== END 2023-03-30 02:47 | disposition home or self-care (01) ==
PROVIDERS: Emergency Provider Physician Assistant; PCP Physician Assistant
DX: S09.90XA Unspecified injury of head, initial encounter (principal); I10 Essential (primary) hypertension; E66.9 Obesity, unspecified; Z68.41 Body mass index [BMI] 40.0-44.9, adult; Z90.49 Acquired absence of other specified parts of digestive tract; Z98.84 Bariatric surgery status; Z90.710 Acquired absence of both cervix and uterus; Z90.79 Acquired absence of other genital organ(s); W01.198A Fall on same level from slipping, tripping and stumbling with subsequent striking against other object, initial encounter
CPT/HCPCS: 70450; 70486; 99284; A9270

== ENCOUNTER 2025-05-27 12:04 | Outpatient (CLI) | payer MEDICARE, SELFPAY ==
[2025-05-27 12:30] LABS: Hematocrit 37.4 % (37.0-47.0); Hemoglobin 11.7 g/dL (12.0-15.0); Immature Granulocyte Percent A 0.3 % (0-0.5); Lymphocytes Absolute Auto 1.81 K/mm3 (0.9-3.2); Mean Corpuscular HGB Conc 31.3 g/dl (32-36); Mean Corpuscular Hemoglobin 28.5 pg (26-34); Mean Corpuscular Volume 91.2 fl (80-100); Nucleated Red Blood Cells Absolute Auto 0.000 K/mm3 (0.0-0.012); Nucleated Red Blood Cells Perc 0.0 % (0.0-0.2); Platelet Count Result 365 k/mm3 (150-375); Red Blood Count 4.10 M/mm3 (4.2-5.4); White Blood Count 8.6 K/mm3 (4.5-10.0)
[2025-05-27 12:38] LABS: Hemoglobin A1C 5.4 % (<5.7)
[2025-05-27 12:53] LABS: Alanine Aminotransferase 13 U/L (6-35); Albumin Level 3.8 g/dL (3.5-5.1); Alkaline Phosphatase 122 U/L (38-126); Anion Gap 4 mmol/L (4-12); Aspartate Amino Transferase 24 U/L (14-36); Bilirubin,Total 0.9 mg/dL (0.2-1.3); Blood Urea Nitrogen 14 mg/dL (7-17); Calcium 8.9 mg/dL (8.4-10.2); Carbon Dioxide 28 mmol/L (22-30); Chloride 105 mmol/L (98-107); Cholesterol 191 mg/dL (0-200); Estimated Glomerular Filt Rate > 60; Glucose 94 mg/dL (65-110); HDL Direct 74 mg/dL; Magnesium 1.9 mg/dL (1.6-2.3); Potassium 4.1 mmol/L (3.4-5.0); Sodium 137 mmol/L (137-145); Total Protein 7.6 g/dL (6.3-8.2); Triglycerides 75 mg/dL (<150)
[2025-05-27 14:04] LABS: Vitamin B12 936.0 pg/mL (239-931)
[2025-06-02 12:08] LABS: Vit. B1, Whole Blood 84.1 nmol/L (66.5-200.0)
== END 2025-05-27 12:05 | disposition home or self-care (01) ==
PROVIDERS: PCP Physician Assistant; Visit Provider Surgery
DX: K91.2 Postsurgical malabsorption, not elsewhere classified (principal); Z13.21 Encounter for screening for nutritional disorder; Z98.84 Bariatric surgery status
CPT/HCPCS: 36415; 80053; 80061; 82607; 82746; 83036; 83735; 84425; 85025